=== PATIENT | female | born 1935 | race Caucasian/White ===

== ENCOUNTER 2017-01-04 19:33 | Inpatient (IN) ==
[2017-01-04] MEDS ORDERED: ASPIRIN PO ONE (19:56)
--- NOTE | 2017-01-04 19:58 | Diag Imaging Result Doc PS360 ---
HEAD W/O CONTRAST - 01/04/2017 INDICATION: stroke protocol TECHNIQUE: A CT dose reduction protocol was used. COMPARISON: None FINDINGS: There is moderate periventricular white matter chronic microvascular disease. There are old areas of encephalomalacia at the right frontal and temporal-occipital lobes. No intracranial mass or hemorrhage. The skull is intact. The sinuses, mastoids, and middle ears are clear. IMPRESSION: Remote ischemic changes of the brain. No acute abnormality. Electronically signed by Nitin Chacko 01/04/2017 7:56 PM
--- NOTE | 2017-01-04 20:22 | Diag Imaging Result Doc PS360 ---
CHEST-PORTABLE - 01/04/2017 INDICATION: stroke protocol TECHNIQUE: COMPARISON: None FINDINGS: The lungs are normally expanded and clear. Heart size and mediastinal contours are normal. No pneumothorax or pleural effusion. IMPRESSION: Negative exam. Electronically signed by Nitin Chacko 01/04/2017 8:20 PM
[2017-01-04 20:33] LABS: MANUAL DIFF NEEDED? NO
[2017-01-04 20:42] LABS: BASO% 1.1 % (0.0-0.8); EOS# 0.42 X1000 (0.0-0.7); EOS% 5.8 % (0.0-10.0); HEMATOCRIT 41.4 % (37.0-47.0); HEMOGLOBIN 13.7 g/dL (12.0-16.0); IMM GRAN# 0.06 X1000 (0.0-0.04); IMM GRAN% 0.8 % (0.0-0.5); LYMPH% 24.7 % (20.5-51.1); MCH 31.4 PG (27-31); MCHC 33.1 g/dL (33-37); MCV 94.7 FL (81-99); MONO# 0.56 X1000 (0.11-0.59); MONO% 7.7 % (1.7-9.3); MPV 10.7 FL (7.4-10.4); NEUT% 59.9 % (42.2-75.2); PLT 247 X1000 (130-400); RBC 4.37 XMIL (4.2-5.4)
[2017-01-04 20:50] LABS: INR 1.36; PROTIME 14.6 Seconds (9.2-11.7); PTT 27.1 Seconds (22.0-36.0)
[2017-01-04 21:06] LABS: URINE MICRO REVIEW NEEDED? NO; URINE SOURCE CATH
[2017-01-04 21:08] LABS: CALCIUM 9.7 mg/dL (8.8-10.2); POTASSIUM 3.1 mmol/L (3.5-5.1); TOTAL BILIRUBIN 0.35 mg/dL (0.20-1.00); TOTAL PROTEIN 7.6 g/dL (6.3-8.3)
[2017-01-04 21:11] LABS: BILIRUBIN URINE NEGATIVE (NEGATIVE); BLOOD URINE NEGATIVE (NEGATIVE); COLOR YELLOW; GLUCOSE URINE NEGATIVE (NEGATIVE); LEUKOCYTES URINE SMALL (NEGATIVE); NITRITE URINE POSITIVE (NEGATIVE); PROTEIN URINE NEGATIVE (NEGATIVE); SP GRAVITY URINE 1.013; TURBIDITY URINE CLEAR (CLEAR); UR EPITHELIAL CELLS <10 /HPF (<10); URINE BACTERIA 4+ /HPF; URINE CULTURE NEEDED? YES; URINE RBC <10 /HPF (<10); UROBILINOGEN URINE NORMAL (NORMAL)
[2017-01-04 21:19] LABS: UR AMPHETAMINES QUAL NONE DETECTED (NONE DETECT); UR BARBITUATES QUAL NONE DETECTED (NONE DETECT); UR BENZODIAZEPIN QUAL NONE DETECTED (NONE DETECT); UR CANNABINOIDS QUAL NONE DETECTED (NONE DETECT); UR COCAINE QUAL NONE DETECTED (NONE DETECT); UR METHADONE QUAL NONE DETECTED (NONE DETECT); UR OPIATES QUAL NONE DETECTED (NONE DETECT); UR OXYCODONE QUAL NONE DETECTED (NONE DETECT); UR PCP QUAL NONE DETECTED (NONE DETECT)
[2017-01-04] MEDS ORDERED: DUONEB (A & A) INH ONE (22:16)
--- NOTE | 2017-01-04 23:12 | HISTORY AND PHYSICAL ---
PRIMARY CARE PROVIDER: Nacho Leos. MACHINING ASSOCIATE: Michael Delgadillo. ORACLE DISTRIBUTION CONSULTANT: Dr. Peace. UROLOGIST: Dr. Booth. CHIEF COMPLAINT: Cannot move left arm. HPI: Ms. Jolley is an 81-year-old female who presented to the emergency room today with new onset left-sided hemiparesis affecting her upper arm and face. She is a resident at the [facility] in the assisted living portion. She had played a card game with her friends and walked back to her apartment. She ambulates with a cane. On arriving home she went to the bathroom, went to flush the toilet using her left arm and could not move it. She then lied down on the bed for few minutes thinking that it would pass, after realizing that it would not she triggered her med alert that contacts the RN at the [facility] who subsequently called an ambulance. On arrival to the emergency room a head CT was performed which did show moderate periventricular white matter chronic microvascular disease. There were noted hypodensities but appeared to be older ischemic changes as opposed to an acute ischemic change. She will be admitted to CICU for further evaluation and treatment. PAST MEDICAL HISTORY: 1. Bladder cancer. 2. Hypertension. 3. Hyperlipidemia. 4. 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 SURGICAL HISTORY: 1. Thyroidectomy. 2. Questionable appendectomy. The patient has stated that she had not had her appendix removed however previous documentation did say she had an appendectomy. 3. Tonsillectomy. 4. Left hip replacement. 5. Colon resection. 6. Bladder cancer with subsequent surgery. SOCIAL HISTORY: Lives at the [facility]. Denies tobacco, alcohol or illicit drug use or abuse. FAMILY HISTORY: Mother had colon cancer, father hypertension, paternal grandmother had diabetes mellitus, sister who was at the bedside has atrial fibrillation with a pacemaker and coronary artery disease. ALLERGIES: No known drug allergies. HOME MEDICATIONS: 1. Vitamin A 800 units p.o. at bedtime. 2. CoQ10 200 mg p.o. daily. 3. Losartan/hydrochlorothiazide 100/25 one p.o. daily. 4. Pravastatin 40 mg p.o. at bedtime. 5. Metoprolol 100 mg p.o. at bedtime. 6. Glucosamine chondroitin 2 capsules p.o. b.i.d. 7. Calcium 600 with vitamin D 1 capsule daily. 8. Aspirin 81 mg p.o. daily. 9. Levothyroxine 88 mcg p.o. daily. REVIEW OF SYSTEMS: Fourteen point review of systems conducted with the patient. She denied chest pain, headache, dizziness, nausea, vomiting, blurring of vision or any acute visual changes. Also denied shortness of breath, diarrhea, hematochezia, hematemesis, hemoptysis, melena or dysuria. Pertinent positives listed above in the HPI. All other systems reviewed and found to be negative. PHYSICAL EXAMINATION: VITAL SIGNS: Temperature 98.6 degrees, pulse 73, respirations 15, blood pressure 131/74, oxygen saturation 95% on room air. GENERAL: Pleasant 81-year-old female noted to have a noticeable left-sided facial droop during interview and slurring of speech. Does answer all questions appropriately, is alert and oriented x3. No acute distress. HEENT: Head is atraumatic, normocephalic. Pupils are equal, round, reactive to light. Extraocular eye movement intact. Sclerae anicteric. Conjunctivae is pink. Left-sided facial droop with tongue deviation to the left side noted. Oral mucosa is moist. Otherwise normal oropharyngeal examination. NECK: Supple. No JVD. Thyroid, old surgical scar from thyroidectomy noted. Trachea is midline. No carotid bruit on auscultation. CARDIAC: S1-S2 appreciated. Regular rhythm, sinus arrhythmia per EKG rate in the 70s. No murmurs, gallops, rubs. LUNGS: Some expiatory wheezing noted greater on the right side. No rhonchi, no rales. Symmetrical rise and fall with respirations. ABDOMEN: Protuberant, soft, nondistended, nontender. Bowel sounds present in all 4 quadrants. Normoactive. No pulsatile mass. No organomegaly. EXTREMITIES: There is 1 to 2+ pitting edema bilateral lower extremities midthigh to ankle, 2+ pedal pulses bilaterally. GENITOURINARY: Patient voids, Parsons catheter to be placed, otherwise deferred. NEUROLOGICAL: Alert and oriented x3. Left arm is flaccid on examination and cannot be held against gravity. Facial asymmetry was noted with a left-sided facial droop and tongue deviation to the left side. Patient does follow all commands aside from this. Cranial nerves were evaluated and were otherwise grossly intact. MUSCULOSKELETAL: Left upper extremity flaccid, negative hand linoleum installer. Could not be held against gravity. Right upper extremity 5/5 strength, bilateral lower extremity with symmetrical strength. SKIN: Warm, dry and intact. No acute lesions or rash. DIAGNOSTIC DATA: CT of the head showed remote ischemic changes of the brain. No acute abnormality. Chest x-ray, borderline cardiomegaly but otherwise NAD. LABORATORY DATA: CBC within normal limits. PT 14.6, INR 1.36. Sodium 142, potassium 3.1, chloride 99, carbon dioxide 27, BUN 30, creatinine 1.1, glucose 128. Urine nitrite positive, leukocyte esterase positive, 10-20 WBCs, 4+ bacteria. Toxicology screen is negative. ASSESSMENT AND PLAN: 1. Cerebrovascular accident most likely affecting the middle cerebral artery. CT scan was positive for old hypodensities however no acute abnormality was seen. Will order noncontrasted MRI in a.m. Patient was previously on 81 mg aspirin. Will discontinue and change to Plavix 75 mg p.o. daily as the patient continues to have neurological changes on aspirin. Lipid profile has been ordered. Recommend possible change from pravastatin 40 mg to high-dose Lipitor however will defer this to Dr. Leos, her primary care provider. We will order a carotid ultrasound in a.m. Patient had echocardiogram last month. She has not in new onset atrial fibrillation. We will not order echocardiogram at this time. 2. Hypertension. Patient is normotensive at this time. Will not give acute treatment for hypertension for hyperperfusion related to cerebrovascular accident. Will continue her losartan and defer to Dr. Leos, possible decrease or stoppage in the morning if needed. Will continue Toprol 100 mg p.o. at bedtime as well. 3. Hypothyroidism. Check TSH level. Continue Synthroid. 4. Hypokalemia. Will give 20 mEq of potassium. 5. Chronic renal insufficiency. The patient is on a thiazide diuretic and is noted to have lower extremity edema. Will not give fluid resuscitation at this time as it is unknown what the patient's baseline creatinine is. Will defer this to Dr. Leos who will see patient in a.m. Further recommendations per patient clinical course. Dictated by LORENA Galicia for Brandt Nagel MD Seen,examined and discussed with EMAIL PRODUCER. cc: LORENA Galicia MD Nacho T. Leos, MD [facility]
[2017-01-04] MEDS ORDERED: LOVENOX SUBQ SCH (23:36)
[2017-01-04] MEDS ORDERED: ZOFRAN IV PRN (23:36)
[2017-01-05] MEDS: POTASSIUM CHLORIDE 20 MEQ/SWI 20 MEQ/100 ML IVPB IV SCH ×2 (00:32→02:51)
[2017-01-05] MEDS: ROCEPHIN 1 GM/NS 1 GM/50 ML IVPB IV SCH ×2 (00:32→23:29)
[2017-01-05 05:44] LABS: MANUAL DIFF NEEDED? NO
[2017-01-05 05:51] LABS: BASO% 0.9 % (0.0-0.8); EOS# 0.38 X1000 (0.0-0.7); EOS% 5.7 % (0.0-10.0); LYMPH# 1.48 X1000 (1.2-3.4); LYMPH% 22.2 % (20.5-51.1); MCH 31.6 PG (27-31); MCHC 33.3 g/dL (33-37); MCV 94.9 FL (81-99); MONO# 0.78 X1000 (0.11-0.59); MONO% 11.7 % (1.7-9.3); MPV 10.4 FL (7.4-10.4); NEUT% 59.5 % (42.2-75.2); PLT 202 X1000 (130-400); RBC 4.11 XMIL (4.2-5.4)
[2017-01-05] MEDS ORDERED: SYNTHROID PO SCH (07:00)
[2017-01-05 07:15] LABS: AGAP 15; BUN 26 mg/dL (8-22); CHLORIDE 106 mmol/L (98-107); COSMO 297; HDL 40 mg/dL (45-65); LDL 99 mg/dL; MAGNESIUM 1.7 mg/dL (1.5-2.7); POTASSIUM 3.9 mmol/L (3.5-5.1); SODIUM 147 mmol/L (136-145); TCO2 26 mmol/L (25-35); TRIGLYCERIDES 157 mg/dL (35-135); VLDL 31 mg/dL
[2017-01-05] MEDS: HYZAAR 50/12.5 MG PO SCH (08:39)
[2017-01-05] MEDS: COENZYME Q10 PO SCH (08:39)
[2017-01-05] MEDS: CALTRATE 600 + D PO SCH (08:39)
[2017-01-05] MEDS: GLUCOSAMINE 500 MG/CHONDROITIN 400 MG PO SCH ×3 (08:39→21:06)
[2017-01-05] MEDS ORDERED: PLAVIX PO SCH (09:00)
--- NOTE | 2017-01-05 12:07 | CONSULTATION ---
DATE OF CONSULTATION: 01/05/2017 REQUESTING PHYSICIAN: Dr. Leos and the Hospitalist Service REASON FOR CONSULTATION: Stroke. HISTORY OF PRESENT ILLNESS: Ms. Jolley is an 81-year-old female who stays at [facility] living. The patient was playing cards yesterday in the afternoon when all of a sudden she noted after going to the bathroom that her left arm was not moving. The patient waited for a little while and realized that this was not getting better and then decided to ask for help. She was brought to the emergency room department. They checked her immediately. Her initial vital signs showed that her blood pressure was 125/71 and subsequently 133/107. They acknowledged that the left arm and face were paralyzed. They got a CT of the head which shows remote ischemic changes of the brain, no acute abnormality. A 12-lead EKG shows sinus rhythm with PACs and a right bundle branch block. No acute ischemic changes. First troponin is negative. Chest x-ray was also done and is negative. They also did lab work that shows normal hemoglobin and white count, normal platelet count. Sodium was normal. Potassium was low. Creatinine was slightly elevated. Her cholesterol was 170, triglycerides 157, LDL was 99, HDL of 40. The patient was subsequently admitted to the hospital for management of his acute weakness of the left arm and left side of the face. The patient denies having any chest pain or any pain in the preceding days. She says that in the few months preceding this event, she had 2 episodes of unexplained falls. She had not noticed any swelling or claudication. No palpitations. No dizziness. PAST MEDICAL HISTORY: Positive for hypertension for a number of years. She also has a history of hyperlipidemia. She has a history of moderate degree of mitral regurgitation, recent echocardiogram done by Dr. Peace about a month ago on 12/05/2016 showed moderate degree of mitral regurgitation with preserved ejection fraction. Her history is also positive for enlarged thyroid and bladder cancer. PAST SURGICAL HISTORY: She has had transurethral resection of bladder cancer, and she is being followed by Oncology and Dr. Booth. She has had thyroidectomy. She had cataract surgery. She had left hip surgery. She has had resection of 3/4 of her colon at the age of 25 or so for familial polyposis. She has not had any recurrent issues with that. SOCIAL HISTORY: She used to work for the [employer] for a total of 35 years. She retired about 15 or 20 years ago. The patient had 2 children, and unfortunately both are . One of lung cancer, and the daughter of complications of diabetes. She is . She has one sister that lives nearby. She is not a smoker, not a drinker. FAMILY HISTORY: Really noncontributory. REVIEW OF SYSTEMS: Her general physical stamina is somewhat decreased due to arthritis. She does not do a whole lot of physical activity. She is morbidly obese with a body mass index of 43.9. Her other points on the review of systems, cardiovascular, neurologic, psychiatric, skin, hearing, visual, abdominal, pulmonary, metabolic, musculoskeletal, etc. is noncontributory beyond what I have reported above. PHYSICAL EXAMINATION: Blood pressure is 150/93, temperature 98.6, pulse 65, respirations 19. She is awake, alert and oriented, in no distress. HEENT is normal. She has left facial drooping. No cervical bruits. No jugular venous distention. Chest shows diminished breath sounds at the bases. Heart sounds are regular and rhythmic. There is a questionable systolic murmur over the left sternal border. This is very muffled. Abdomen is obese. Bowel sounds diminished. No palpable liver. Extremities showed very good pulses. There is subtle weakness of the left leg. Neurologic: She has obvious left facial paralysis as well as left upper extremity paralysis. The left leg is slightly impaired. IMPRESSION: 1. The patient has suffered an acute right hemispheric stroke with left arm and face paralysis. 2. History of hypertension. 3. History of hyperlipidemia. 4. Moderate degree of mitral regurgitation. 5. Abnormal EKG with a right bundle branch block. RECOMMENDATIONS: At this point in time, they have requested carotid ultrasound, MRI of the brain. I would suggest to obtain a consultation with Neurology. We will be reviewing additional tests including followup troponin, D-dimer and ProBNP levels, and we will furnish additional advice. Upon discharge, she will be followed by Dr. Brown who is her regular experimental technician. cc: MD Nacho Katz MD
[2017-01-05] MEDS: LOVENOX SUBQ SCH ×2 (13:26→23:29)
--- NOTE | 2017-01-05 13:50 | PROGRESS NOTE ---
DATE: 01/05/2017 SUBJECTIVE: Mrs. Jolley was admitted to [facility] with an apparent embolic CVA. She has left-sided facial weakness and paresis of the left upper extremity. She remains in normal sinus rhythm. Her initial CT scan of the brain demonstrated moderate periventricular white matter changes with old areas of encephalomalacia at the right frontal and temporal occipital lobes. Blood pressure is generally well controlled. She denies any chest pain, palpitations, or anginal equivalents. OBJECTIVE: Vital signs: Blood pressure 150/93, pulse 65, respirations 19, temperature 98.6 degrees. Neck: No carotid bruits. CV: Regular rate and rhythm. Lungs: Clear. Abdomen: Soft, nontender, with active bowel sounds. Neuro: She is alert and easily arousable. Speech is garbled and slurred. She has left facial droop. She is unable to move the left arm at all. She has normal strength in the right upper extremity and the lower extremities bilaterally. DTRs are 2+ and symmetric. LABORATORY DATA: Various laboratory studies were obtained. A lipid profile demonstrated total cholesterol of 170, triglycerides 157, LDL 99 and an HDL of 40. Her TSH was 5.79. A BMP demonstrated the following. Sodium 147, potassium 3.9, BUN 26, creatinine 1.0, and glucose 95. ASSESSMENT AND PLAN: 1. Left upper extremity hemiparesis. It appears that she has had an embolic cerebrovascular accident. The classic findings of a right middle cerebral artery stroke would be ipsilateral facial weakness with contralateral limb weakness. We will continue to monitor for arrhythmias via telemetry. We will check a carotid ultrasound in the morning as well as an MRI of the brain. She has had a recent echocardiogram that was grossly normal. I am going to stop the Plavix and Lovenox 40 mg subcutaneously daily and begin Lovenox 1 mg/kg subcutaneously b.i.d. If the MRI is unremarkable I believe that one would potentially have to consider the possibility of Krishna paralysis. 2. Mixed hyperlipidemia. In the setting of a stroke, I would like to see the LDL less than 70. I will increase the pravastatin to 80 mg at bedtime. I will recheck liver function tests in 6 weeks and liver function tests and lipid profile in 12 weeks. 3. Hypertension. Her blood pressure is stable. We will continue her current regimen of medications. 4. Hypothyroidism. Her TSH was 5.79. I am going to increase the levothyroxine to 100 mcg daily and she will need followup thyroid studies as an outpatient. She is followed by Dr. Leos. cc: MD Nacho So MD
--- NOTE | 2017-01-05 18:56 | Carotid Study ---
DATE: 01/05/2017 PROCEDURE: Carotid duplex imaging. REFERRING PHYSICIAN: Yasmin in the [facility]. INTERPRETING PHYSICIAN: Rudy Hoskins MD TECH: Edwige. INDICATIONS: CVA with left hemiparesis. OBSERVED DATA RIGHT LEFT Brachial Blood Pressure Carotid Pulse Bruits: Carotid/Sub DIAGRAM OF ULTRASOUND IMAGING R L RIGHT INT EXT INT EXT LEFT Ced (cm/s) Ced (cm/s) Subclavian 119/13 Subclavian 81/10 CCA Proximal 59/12 CCA Proximal 56/9 CCA Distal 51/12 CCA Distal 69/14 Bulb 38/12 Bulb 46/9 ICA Proximal 53/12 ICA Proximal 53/16 ICA Mid 52/14 ICA Mid 60/14 ICA Distal 68/18 ICA Distal 59/17 ECA 104/16 ECA 66/15 Vertebral 36/ antegrade Vertebral 53/9 antegrade ICA/CCA Ratio 1.16 ICA/CCA Ratio 0.88 % Stenosis 0-39% % Stenosis 0-39% PHYSICIAN INTERPRETATION: There is focal-appearing plaque in the right carotid bulb. This does not cause significant flow disturbance or elevation of velocity. Similarly on the left there is more broad-based plaque focally in the bulb. That, again, does not cause turbulence or elevation of velocities. Of note, there is a mild discrepancy in the systolic velocities not in the right and left subclavian vessels with the right being slightly higher than the left, and the tech noted a plaque here, although it is not clearly seen on the images available. SUMMARY: Estimated 0-39% stenosis bilaterally with mild atherosclerotic changes in the bulb bilaterally. Regarding subclavian velocity discrepancy, would recommend correlation with angiography with clinically indicated. cc: MD Terry Barrios CRNP Russell T. Barr, MD [facility] CENTER[facility] Manuel
[2017-01-05] MEDS ORDERED: PRAVACHOL PO SCH (21:00)
[2017-01-05] MEDS: TOPROL XL PO SCH (21:00)
[2017-01-05] MEDS: PRAVACHOL PO SCH (21:00)
[2017-01-05] MEDS: PATIENT'S OWN MED PO SCH (21:05)
--- NOTE | 2017-01-06 05:31 | EKG Report ---
Test Performed on : 01/05/2017 06:30:47 AM Test Reason : eval rhythm Blood Pressure : / mmHG Vent. Rate : 068 BPM Atrial Rate : 068 BPM P-R Int : 174 ms QRS Dur : 120 ms QT Int : 464 ms P-R-T Axes : 074 -15 016 degrees QTc Int : 493 ms Sinus rhythm. with premature supraventricular complexes. Right bundle branch block Abnormal ECG When compared with ECG of 04-JAN-2017 20:00, (Unconfirmed) premature supraventricular complexes. are now present Confirmed by Armando CARDENAS, Ted Shanks ([id number]) on 01/07/2017 2:15:14 PM
[2017-01-06] MEDS: SYNTHROID PO SCH (06:19)
[2017-01-06] MEDS: COENZYME Q10 PO SCH (08:50)
[2017-01-06] MEDS: HYZAAR 50/12.5 MG PO SCH (08:50)
[2017-01-06] MEDS: GLUCOSAMINE 500 MG/CHONDROITIN 400 MG PO SCH ×2 (08:50→21:55)
[2017-01-06] MEDS: CALTRATE 600 + D PO SCH (08:50)
[2017-01-06] MEDS: ASPIRIN PO SCH (08:53)
[2017-01-06] MEDS: MACROBID PO SCH ×2 (11:40→21:55)
[2017-01-06] MEDS: LOVENOX SUBQ SCH ×2 (11:40→21:56)
[2017-01-06] MEDS: TOPROL XL PO SCH (21:55)
[2017-01-06] MEDS: PRAVACHOL PO SCH (21:55)
[2017-01-07] MEDS: LOVENOX SUBQ SCH ×3 (00:15→21:27)
[2017-01-07] MEDS: PATIENT'S OWN MED PO SCH ×2 (00:15→21:21)
[2017-01-07] MEDS: SYNTHROID PO SCH (06:18)
--- NOTE | 2017-01-07 07:48 | PROGRESS NOTE ---
DATE: 01/07/2017 CHIEF COMPLAINT: Weakness of left upper extremity. SUBJECTIVE: Ms. Jolley feels a little stronger in the left arm. Now she can raise the arm against gravity. The left side of her face is still paralyzed. She is in good spirits. She is not having any pain. OBJECTIVE: Vital signs: Blood pressure is 127/69, temperature 98.2, pulse 81, respirations 20. General: She is awake, alert and oriented. She has obvious paresis of the left side of her face, drooping. HEENT: Otherwise unremarkable. Chest: Fairly clear to auscultation and percussion. Cardiac: Heart sounds are regular and rhythmic. Occasional extrasystole. Abdomen: Nontender. No masses. No hepatomegaly. Extremities: Showed no edema. She has definite weakness in the left arm. Left face is also weak. Follows commands. LABORATORY DATA: Sodium on the was 147, potassium 3.9, BUN 26, creatinine 1.0. ProBNP was 947. Her troponin was checked twice, they were negative. EKG shows right bundle branch block with sinus rhythm. Cholesterol total 170, triglycerides 157, LDL 99, HDL 40. IMPRESSION: 1. Patient who has suffered a right cerebrovascular accident with stroke with left hemiparesis involving the face and arm. The etiology may well be embolic. I have reviewed the transthoracic echocardiogram done a month ago that shows moderate mitral regurgitation but, more importantly, it shows significant enlargement of the left atrium which may be an indication that she probably has paroxysmal atrial fibrillation at times. That raises the likelihood of embolic stroke tremendously. 2. History of hypertension. 3. History of hyperlipidemia. 4. Abnormal electrocardiogram. RECOMMENDATIONS: I would suggest to pursue transesophageal echocardiogram. I discussed with her indications, risk and complications. She is in agreement. We will set her up for January 09 in the morning. At this time, she is being treated for a urinary tract infection which is growing E. coli resistant to ampicillin and also to Levaquin as well as Bactrim. She is taking nitrofurantoin at his time. I would probably let her stay on the nitrofurantoin a couple of days before doing the BORA. Further intervention will depend on the findings. She may require long- term anticoagulation with Eliquis or one of the standard oral anticoagulant drugs including warfarin. We will check her electrolytes tomorrow morning. Further advice will be forthcoming. cc: MD Nacho Katz MD
[2017-01-07] MEDS: CALTRATE 600 + D PO SCH (10:27)
[2017-01-07] MEDS: ASPIRIN PO SCH (10:27)
[2017-01-07] MEDS: GLUCOSAMINE 500 MG/CHONDROITIN 400 MG PO SCH ×2 (10:27→21:21)
[2017-01-07] MEDS: COENZYME Q10 PO SCH (10:27)
[2017-01-07] MEDS: MACROBID PO SCH ×2 (10:27→21:21)
[2017-01-07] MEDS: HYZAAR 50/12.5 MG PO SCH (10:28)
--- NOTE | 2017-01-07 16:50 | Diag Imaging Result Doc PS360 ---
EXAM: FOREARM-LEFT HISTORY: left forearm swelling TECHNIQUE: Two views COMMENT: There is marked soft tissue swelling on the dorsal aspect of the distal forearm. Some skin thickening is present. There is no evidence of fracture or dislocation. No periosteal reaction or lysis is demonstrated. IMPRESSION: No acute bony disease. Soft tissue swelling as described. Electronically signed by Mohsen Cardenas 01/07/2017 4:48 PM
--- NOTE | 2017-01-07 16:51 | Diag Imaging Result Doc PS360 ---
EXAM: HAND COMPLETE LEFT HISTORY: SWELLING TECHNIQUE: Left hand three views COMMENT: there are severe degenerative changes in the first metacarpocarpal joint. There is no evidence of acute fracture or dislocation. Soft tissue swelling is again noted around the wrist but particularly over the dorsum of the distal forearm. IMPRESSION: Osteoarthritis. Soft tissue swelling. Electronically signed by Mohsen Cardenas 01/07/2017 4:49 PM
--- NOTE | 2017-01-07 16:52 | Diag Imaging Result Doc PS360 ---
EXAM: WRIST COMPLETE LEFT HISTORY: SWELLING TECHNIQUE: Three views COMMENT: There are severe degenerative changes in the first metacarpocarpal joint with osteophytes and sclerosis of the trapezium. There are also subchondral cysts present in the scaphoid laterally and the lunate. No evidence of acute fracture or dislocation is present. IMPRESSION: Osteoarthritis. Electronically signed by Mohsen Cardenas 01/07/2017 4:50 PM
[2017-01-07] MEDS: TOPROL XL PO SCH (21:21)
[2017-01-07] MEDS: PRAVACHOL PO SCH (21:21)
[2017-01-08] MEDS: SYNTHROID PO SCH (06:18)
[2017-01-08] MEDS: CALTRATE 600 + D PO SCH (09:01)
[2017-01-08] MEDS: MACROBID PO SCH (09:02)
[2017-01-08] MEDS: ASPIRIN PO SCH (09:02)
[2017-01-08] MEDS: HYZAAR 50/12.5 MG PO SCH (09:02)
[2017-01-08] MEDS: COENZYME Q10 PO SCH (09:02)
[2017-01-08] MEDS: GLUCOSAMINE 500 MG/CHONDROITIN 400 MG PO SCH ×2 (09:03→21:53)
[2017-01-08] MEDS: PRAVACHOL PO SCH (21:53)
[2017-01-08] MEDS: TOPROL XL PO SCH (21:53)
[2017-01-08] MEDS: PATIENT'S OWN MED PO SCH (21:53)
[2017-01-09] MEDS: SYNTHROID PO SCH (06:16)
[2017-01-09] MEDS ORDERED: XYLOCAINE 2% VISCOUS ONE (07:54)
[2017-01-09] MEDS ORDERED: VERSED ONE (07:54)
[2017-01-09] MEDS ORDERED: DEMEROL ONE (07:55)
[2017-01-09] MEDS ORDERED: ANESTHESIA PB SET 88 IN 5742 ONE (07:55)
[2017-01-09] MEDS ORDERED: CLAVE TWINSITE 32 IN 11959 ONE (07:55)
[2017-01-09] MEDS ORDERED: NS 1,000 ML ONE (07:55)
[2017-01-09] MEDS ORDERED: XYLOCAINE 4% TOPICAL SOLUTION ONE (07:56)
[2017-01-09] MEDS: ASPIRIN PO SCH (10:37)
[2017-01-09] MEDS: GLUCOSAMINE 500 MG/CHONDROITIN 400 MG PO SCH ×3 (10:37→22:20)
[2017-01-09] MEDS: HYZAAR 50/12.5 MG PO SCH (10:37)
[2017-01-09] MEDS: CALTRATE 600 + D PO SCH (10:38)
[2017-01-09] MEDS: COENZYME Q10 PO SCH (10:38)
--- NOTE | 2017-01-09 10:50 | Transesophageal Echocardiogram ---
DATE: 01/09/2017 PROCEDURE: Transesophageal echocardiogram. REASON FOR THE STUDY: Patient with a stroke, presumably embolic. The patient was consented on 01/07/2017. DESCRIPTION: The patient was brought to the cardiac computer lab para professional in a fasting state. The patient was with a normal mental status before performing the study. Her throat was anesthetized with viscus lidocaine and HurriCaine. She received 2 mg of Versed and 25 mg of Demerol given in divided doses. The esophagus was intubated without difficulty. Multiple views of the cardiac structures were obtained. SUMMARY OF MAIN FINDINGS: 1. The left atrium appears to be generous in size as well as the left atrial appendage. Flow velocities are on the order of 30 cm/s to 40 cm/s. There is evidence of a mild degree of spontaneous echo contrast. 2. The interatrial septum is intact. There is no shunt across the septum.Agitated saline injected (negative for shunt). 3. The eustachian valve is prominent. 4. The right atrium is small. 5. The tricuspid valve looks normal. Color flow mapping is unremarkable. 6. The pulmonic valve looks normal. 7. The right ventricle is normal. 8. The left ventricle is normal in size and function.EF probably in the 65% or greater range. 9. The aortic valve has 3 cusps and they open normally. Color flow mapping is unremarkable. 10.The mitral valve shows a [id number] degree of regurgitation but there is no vegetation. 11.The pulse wave Doppler of pulmonary venous flow on the right and left is normal. 12.The descending thoracic aorta is not dilated. It shows some scattered plaque , very mild. 13.There is no pericardial effusion. SUMMARY: In summary, this study shows no evidence of intracardiac thrombus, however, the left atrium and its appendix are prominent. There is spontaneous echo contrast. Conceivably the patient may have suffered an embolic stroke if she had episodes of paroxysmal atrial fibrillation. RECOMMENDATIONS: Consider either long-term anticoagulation or if in doubt probably a loop recorder monitor looking for evidence of paroxysmal atrial fibrillation. The patient tolerated this procedure well without complication. cc: MD Nacho Katz MD [facility]OSPITALJose Manuel
[2017-01-09] MEDS ORDERED: LIPITOR PO SCH (21:00)
[2017-01-09] MEDS: TOPROL XL PO SCH (22:20)
[2017-01-09] MEDS: PATIENT'S OWN MED PO SCH (22:21)
[2017-01-10] MEDS: SYNTHROID PO SCH (06:14)
[2017-01-10 08:30] VITALS: BP 134/82
[2017-01-10] MEDS: COENZYME Q10 PO SCH (08:49)
[2017-01-10] MEDS: GLUCOSAMINE 500 MG/CHONDROITIN 400 MG PO SCH (08:50)
[2017-01-10] MEDS: CALTRATE 600 + D PO SCH (08:50)
[2017-01-10] MEDS: ASPIRIN PO SCH (08:50)
[2017-01-10] MEDS: HYZAAR 50/12.5 MG PO SCH (08:51)
--- NOTE | 2017-01-10 09:47 | DISCHARGE SUMMARY ---
ADMISSION DATE: 01/04/2017 DISCHARGE DATE: 01/10/2017 FINAL DIAGNOSES: 1. 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 2. Suspected transient atrial fibrillation. 3. Essential hypertension. 4. Hyperlipidemia. 5. Hypothyroidism. 6. History of bladder cancer. PRESENT ILLNESS: Ms. Jolley is an 81-year-old woman resident of the [facility]. She was playing a card game with friends and had to leave momentarily to use the bathroom. When she attempted to use her left arm to flush the toilet, she noticed that she could not move her left arm. After waiting a few minutes and realizing that it would not resolve spontaneously, she contacted the nurse at the [facility], who called an ambulance. In the emergency room she was evaluated, found to have a significant left facial droop, left arm weakness and very mild left leg weakness. CT of the brain showed chronic microvascular disease and at least 2 small old areas of encephalomalacia. PHYSICAL EXAMINATION: Vital Signs: Blood pressure 131/74, pulse of 73. General: She is pleasant and alert, but had a noticeable left-sided facial droop and some dysarthria. The tongue deviated to the left. Neck: Supple with no bruits. She had an old surgical scar from thyroidectomy. Lungs: Clear. Abdomen: Soft and nontender. Extremities: She had slight collateral pitting edema of the ankles. Neurologic exam: She was alert and oriented. Her left arm was flaccid and she was unable to raise it against gravity. She does follow commands and responds appropriately to questions. Cranial nerves are otherwise unremarkable. DATABASE: CBC was normal. Sodium 142, potassium 3.1, BUN 30, creatinine 1.1. Urinalysis showed 10-20 WBCs, 4+ bacteria, nitrite positive. HOSPITAL COURSE: She was admitted to CICU with a diagnosis of an acute ischemic infarct of the right cerebral hemisphere due to her expressive, but not receptive aphasia. This was felt to be in the right motor strip. Carotid Doppler exam: Leonidas she had some focal plaque in each carotid bulb, but no obstructing lesions. Dr. Watson, tool shaper set up operator, consulted and said he suspected that this stroke could have been embolic with paroxysmal atrial fibrillation. Transthoracic echocardiogram had been done recently and showed only mild left atrial enlargement and normal left ventricular function. He recommended a transesophageal echocardiogram, which was done on 01/09. She had a generous size left atrium and left atrial appendage with spontaneous echo contrast noted, although she was in sinus rhythm. The interatrial septum was intact. Mild to moderate mitral regurgitation was noted. Aortic valve appeared normal as did the pulmonic valve in the right-sided structures. He recommended strongly consideration of anticoagulation and an outpatient event monitor after she completes rehabilitation. She was seen by physical therapy occupational therapy and speech therapy. Her swallowing was felt to be safe with a mechanical soft diet and thin liquids. While here, her left shoulder and left elbow strength improved, but her wrist and hand remained essentially flaccid on the left side. She was able to ambulate well with a omero walker and seemed to have no significant leg weakness. Occupational therapy did not have equipment here to make a protective wrist splint for her left wrist, so an off-the- shelf one was obtained, but seems to fit rather poorly. She was noted to have some bruising and swelling of the distal left forearm, and x-rays of the wrist and forearm were negative for fracture. On admission her urinalysis was abnormal with white blood cells and positive nitrites. Culture subsequently grew enterococci and she was treated with Macrobid. She is discharged to [facility] for subacute rehabilitation, and I will continue to follow her there. DISCHARGE MEDICATIONS: 1. Metoprolol ER 50 mg at bedtime. 2. Eliquis 5 mg q. 12 hours. 3. Atorvastatin 40 mg at bedtime. 4. Coenzyme Q-10 200 mg daily. 5. Calcium carbonate with vitamin D one daily. 6. Aspirin 81 mg daily. 7. Levothyroxine 88 mcg daily. cc: Nacho Leos MD
== END 2017-01-10 11:31 ==
LOC: ED 19:33 → 3S 22:50 → SUATTDRO 22:50 → 3N 01-06 10:44
PROVIDERS: ADMIT Internal Medicine; ATTEND Internal Medicine

== ENCOUNTER 2017-03-03 13:32 | Inpatient (IN) ==
--- NOTE | 2017-03-03 14:04 | Diag Imaging Result Doc PS360 ---
EXAM: CHEST-PORTABLE HISTORY: sob/cp TECHNIQUE: Portable upright AP COMPARISON: 01/04/2017 FINDINGS: The lungs are well expanded. The heart is not enlarged. The vessels are not distended. No pneumonia. No pleural effusions identified. There are long-standing arthritic changes to the shoulders. IMPRESSION: Negative chest. Electronically signed by Tha Ocampo 03/03/2017 2:02 PM
[2017-03-03 14:28] LABS: MANUAL DIFF NEEDED? NO
[2017-03-03 14:34] LABS: BASO% 0.4 % (0.0-0.8); EOS# 0.13 X1000 (0.0-0.7); EOS% 1.3 % (0.0-10.0); HEMATOCRIT 45.4 % (37.0-47.0); HEMOGLOBIN 15.1 g/dL (12.0-16.0); LYMPH% 12.1 % (20.5-51.1); MCH 31.2 PG (27-31); MCHC 33.3 g/dL (33-37); MCV 93.8 FL (81-99); MONO# 1.02 X1000 (0.11-0.59); MONO% 10.3 % (1.7-9.3); MPV 11.4 FL (7.4-10.4); NEUT% 75.9 % (42.2-75.2); PLT 233 X1000 (130-400); RBC 4.84 XMIL (4.2-5.4)
[2017-03-03 14:48] LABS: INR 1.5; PROTIME 16.2 Seconds (9.2-11.7); PTT 26.5 Seconds (22.0-36.0)
[2017-03-03 15:27] LABS: ALBUMIN 4.2 g/dL (3.5-5.0); CALCIUM 12.3 mg/dL (8.8-10.2); POTASSIUM 2.9 mmol/L (3.5-5.1); TOTAL BILIRUBIN 0.74 mg/dL (0.20-1.00); TOTAL PROTEIN 7.7 g/dL (6.3-8.3)
[2017-03-03] MEDS ORDERED: NS 1,000 ML IV ONE ×2 (16:54→21:07)
[2017-03-03] MEDS ORDERED: NS 2,000 ML ONE (17:24)
--- NOTE | 2017-03-03 17:51 | PROVIDER DOCUMENTATION ---
This chart was entered by Kevin Fernandez Scribe, acting as scribe for David Lara MD. HPI-General Adult - General Chief Complaint: Weakness Stated Complaint: left sided weakness Time Seen by Provider: 03/03/17 13:38 Source: patient Allergies/Adverse Reactions: Patient Allergies Allergy/AdvReac Type Severity Reaction Status Date / Time No Known Allergies Allergy Verified 01/04/17 20:33 Home Medications: Home Medication List Medication Instructions Recorded Confirmed Last Taken Type Aspirin [Bijal Chewable Aspirin] 81 mg PO DAILY 01/04/17 01/04/17 01/04/17 07: 00 History Calcium Carbonate/Vitamin D3 1 cap PO DAILY 01/04/17 01/04/17 01/04/17 07:00 History [Calcium 600-Vit D3 500 Softgel] Levothyroxine Sodium 88 mcg PO DAILY 01/04/17 01/04/17 01/04/17 07:00 History Ubidecarenone [Coq-10] 200 mg PO DAILY 01/04/17 01/04/17 01/04/17 07:00 History ATORVAstatin [Lipitor] 40 mg PO QHS tablet 01/10/17 Unknown Rx Apixaban [Eliquis] 5 mg PO Q12H #60 tablet 01/10/17 Unknown Rx Metoprolol Succinate E.r. [Toprol 50 mg PO QHS #30 tablet 01/10/17 Unknown Rx Xl] - History of Present Illness -Gen Adult Nature of Presenting Problems: Patient is a 81 y/o F that presents to the ER with generalized weakness and no stamina. patient reports no focal deficits. She just has been weak for 2 days. patient is recovering from a CVA in which it left her left-side weak. She has been doing very well. Location of Pain/Injury: reports: generalized Quality of Pain: reports: other (weakness) Severity: reports: mild, moderate Onset/Duration: reports: gradual, 24 hours ago Timing: reports: improving Context/Activities at Onset: reports: none Modifying Factors: improves with: nothing Associated Symptoms: reports: fatigue, weakness. denies: back/neck pain, dizziness, fever/chills, genitourinary problems, sinus congestion/drainage, nausea, shortness of breath, vomiting Similar Symptoms Previously?: No Recently seen or treated by another doctor?: Yes Review of Systems - Adult - REVIEW OF SYSTEMS - ADULT Constitutional: reports: fatique. denies: chills, fever Eyes: denies: decreased vision, blurred vision, double vision Ears, Nose, Mouth & Throat: reports: no symptoms reported Cardiovascular: denies: chest pain, palpitations Respiratory: denies: cough, shortness of breath, wheezing Gastrointestinal: denies: abdominal pain, diarrhea, nausea, vomiting Genitourinary: denies: dysuria, frequency, hematuria Musculoskeletal: reports: muscle weakness. denies: back pain, joint pain, joint swelling, neck pain Integumentary: reports: no symptoms reported Neurological: denies: dizziness/vertigo, headache/migraines, loss of balance, numbness Psychiatric: reports: no symptoms reported Endocrine: reports: no symptoms reported Hematologic/Lymphatic: reports: no symptoms reported Allergic/Immunologic: reports: no symptoms reported All Other Systems: Reviewed and Negative Past History - Adult - PAST MEDICAL HISTORY-ADULT Review of Records: reports: Old Records Reviewed, Nursing Assessment Review, Medications Reviewed Cardiovascular: reports: HTN, heart valve problem (leaky), hyperlipidemia Genitourinary: reports: cancer (bladder) Neurological: reports: CVA, stroke deficits (left sided) Endocrine/Immune: reports: thyroid disorder (Hypo) - PRIOR SURGERIES/PROCEDURES Surgical/Procedure History: reports: appendectomy, orthopedic (extremity), other (bladder cancer) - IMMUNIZATION STATUS Childhood Immunizations: See Nurse Assessment Flu Vaccine: See Nurse Assessment - FAMILY HISTORY Family History: reviewed, not pertinent - SOCIAL HISTORY Smoking: quit greater than 1 year, cigarettes Substance Use: none/never Alcohol Use Frequency: never Living Situation: care facility (independent living) Physical Exam-General - PHYSICAL EXAM-ADULT Initial Vital Signs Reviewed: Yes - CONSTITUTIONAL General Appearance: alert, no apparent distress - EYES Eyes: PERRL/EOMI, pink conjunctivae - HEAD, EARS, NOSE, MOUTH & THROAT HENMT: normocephalic/atraumatic, moist mucous membranes, normal ENT inspection, TMs normal, pharynx normal - NECK Neck: non-tender, full range of motion, normal inspection - RESPIRATORY Respiratory: lungs clear, normal breath sounds, no respiratory distress, no accessory muscle use - CARDIOVASCULAR Cardiovascular: regular rate, rhythm, no edema, no murmur - GASTROINTESTINAL (ABDOMEN) Abdominal Exam: normal bowel sounds, non tender, soft - MUSCULOSKELETAL Back Exam: no CVA tenderness, no vertebral tenderness Extremity: non-tender, no pedal edema, normal capillary refill, pelvis stable - SKIN Integumentary: normal color, warm/dry - NEUROLOGIC Neurologic: motor weakness (left sided from previous cva). negative: aphasia, EOM palsy, facial droop, sensory deficit - PSYCHIATRIC Psych/Mental Status: normal mood/affect, normal thought content, normal thought process, oriented x 3 Progress - PLAN OF CARE/RESULTS Progress/Plan/Lab Results: Vital Signs Temp Pulse Resp BP Pulse Ox 03/03/17 17:17 72 110/54 97 03/03/17 15:56 71 19 90/57 95 03/03/17 13:40 97.7 F 71 20 103/61 95 No Known Allergies Allergy (Verified 01/04/17 20:33) Aspirin [Bijal Chewable Aspirin] 81 mg PO DAILY 01/04/17 Calcium Carbonate/Vitamin D3 [Calcium 600-Vit D3 500 Softgel] 1 cap PO DAILY Levothyroxine Sodium 88 mcg PO DAILY 01/04/17 Ubidecarenone [Coq-10] 200 mg PO DAILY 01/04/17 ATORVAstatin [Lipitor] 40 mg PO QHS tablet 01/10/17 Apixaban [Eliquis] 5 mg PO Q12H #60 tablet 01/10/17 Metoprolol Succinate E.r. [Toprol Xl] 50 mg PO QHS #30 tablet 01/10/17 Laboratory 03/03/17 03/03/17 03/03/17 14:11 14:11 14:11 WBC RBC Hgb Hct MCV MCH MCHC RDW Std Deviation Plt Count MPV Neut % (Auto) Lymph % (Auto) Cooke % (Auto) Eos % (Auto) Baso % (Auto) Neut # (Auto) Lymph # (Auto) Cooke # (Auto) Eos # (Auto) Baso # (Auto) PT 16.2 H INR 1.50 PTT (Actin FS) 26.5 Sodium Potassium Chloride Carbon Dioxide Anion Gap BUN Creatinine Estimated GFR/1.73 m2 BUN/Creatinine Ratio Glucose POC Glucose 99 Calculated Osmolality Calcium Total Bilirubin AST ALT Alkaline Phosphatase Troponin T < 0.010 Total Protein Albumin Globulin Albumin/Globulin Ratio 03/03/17 03/03/17 14:11 14:11 WBC 9.95 RBC 4.84 Hgb 15.1 Hct 45.4 MCV 93.8 MCH 31.2 H MCHC 33.3 RDW Std Deviation 14.5 Plt Count 233 MPV 11.4 H Neut % (Auto) 75.9 H Lymph % (Auto) 12.1 L Cooke % (Auto) 10.3 H Eos % (Auto) 1.3 Baso % (Auto) 0.4 Neut # (Auto) 7.56 H Lymph # (Auto) 1.20 Cooke # (Auto) 1.02 H Eos # (Auto) 0.13 Baso # (Auto) 0.04 PT INR PTT (Actin FS) Sodium 144 Potassium 2.9 L Chloride 98 Carbon Dioxide 29 Anion Gap 17 BUN 34 H Creatinine 1.8 H Estimated GFR/1.73 m2 27 BUN/Creatinine Ratio 19 Glucose 97 POC Glucose Calculated Osmolality 294 Calcium 12.3 H* Total Bilirubin 0.74 AST 22 ALT 14 Alkaline Phosphatase 108 H Troponin T Total Protein 7.7 Albumin 4.2 Globulin 3.5 Albumin/Globulin Ratio 1.2 Orders Category Date Time Status Cardiac Monitoring DIRECTED Care 03/03/17 13:47 Active Finger Stick Blood Sugar (ED) DIRECTED Care 03/03/17 13:47 Active Misc. NRSG Communication Order DIRECTED Care 03/03/17 13:47 Active Saline Loc NOW Care 03/03/17 13:47 Active CHEST-PORTABLE [RAD] Stat Exams 03/03/17 13:49 Completed CBC WITH ELECTRONIC DIFF [HEME] Stat Lab 03/03/17 14:11 Completed COMPREHENSIVE METABOLIC PANEL [CHEM] Stat Lab 03/03/17 14:11 Completed PROTIME WITH INR [COAG] Stat Lab 03/03/17 14:11 Completed PTT [COAG] Stat Lab 03/03/17 14:11 Completed TROPONIN T Stat Lab 03/03/17 14:11 Completed URINALYSIS W/POSS RFLX CULT-1 [URINALYSIS] Stat Lab 03/03/17 14:13 Ordered 0.9% Sodium Chloride Inj [Ns] 1,000 ml Med 03/03/17 17:24 Discontinued .ROUTE As Directed 0.9% Sodium Chloride Inj [Ns] 1,000 ml Med 03/03/17 16:54 Active IV 250 mls/hr EKG [EKG] Stat Ther 03/03/17 13:47 Ordered Result Diagrams: 03/03/17 14:11 03/03/17 14:11 - EKG 1 Time of EKG reading by physician:: 13:39 EKG Read and Signed by:: David Lara EKG Interpretation (*Must complete 3 of following elements*): Abnormal Rate: 78 Rhythm: a-fib QRS: RBB, LVH ST Wave: normal - XRAY 1 XRAY Study: Chest Impression: Normal XRAY Interpretation: negative - CONSULTS/PCP/HOSPITALIST Notification #1 *Consult/PCP/Hospitalist*: ( managing consultant for ) Time Discussed: 17:45 Reason/Comments: admit to service Consult Disposition: Admit Departure - Departure Date of Disposition Decision: 03/03/17 Time of Disposition Decision: 17:47 DIAGNOSIS: Hypercalcemia, Hypokalemia, Renal insufficiency Disposition: ADMITTED INPATIENT 09 Certified Medical Emergency: Emergent Condition: Stable Referrals and Follow-Ups: None,PCP [Primary Care Provider] - - Critical Care Note This patient required my direct & personal management of CC.: No Attestation - Physician/ SWATI Attestation The physician spent face to face time with patient:: Yes Advanced Practice Provider documentation review:: Supervising physician onsite and consulted in the evaluation and care of this patient. The physician did have a face to face encounter with the patient. This chart was documented by the indicated scribe, (Kevin Fernandez, Scribe) and accurately reflects the services I performed and decisions made by me, David Lara MD, as attested by the provider's signature.
--- NOTE | 2017-03-03 20:32 | HISTORY AND PHYSICAL ---
HISTORY OF PRESENT ILLNESS: Ms. Jolley was last admitted here on 01/04/2017 at which time she had a right parietal CVA with left-sided hemiparesis. She did show improvement. She went to [facility] I think for 3 weeks and then went back to her independent apartment at I think [place]. Since she has been home her sister says that she has really not done very well. She is not eating well. She is very weak. She only takes little steps. She has fallen 3 or 4 times. They are concerned and they brought her here to the emergency room. She denies fever or chills. She deny chest pain. She is not really having confusion or delirium. She denies any trouble with urination or having bowel movements but she is just not hungry. She claims she is eating and family says she is eating very little. Her main concern is increased weakness and several falls. DISCHARGE DIAGNOSES: 1. Acute right hemispheric cerebral infarct with hemiparesis. 2. Suspected transient atrial fibrillation. 3. Essential hypertension. 4. Hyperlipidemia. 5. Hypothyroidism. 6. History of bladder cancer. PAST MEDICAL HISTORY: 1. Bladder cancer. 2. Hypertension. 3. Hyperlipidemia. 4. 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 PAST SURGICAL HISTORY: 1. Thyroidectomy. 2. Questionable appendectomy. The patient states she had her appendix removed, however, she does not have documentation on that. Previous documentation did say she had an appendectomy. 3. Tonsillectomy. 4. Left hip replacement. 5. Colon resection. 6. Bladder cancer with subsequent surgery. SOCIAL HISTORY: Lives at [facility]. Denies tobacco, alcohol or illicit drugs. FAMILY HISTORY: Mother had colon cancer. Father had hypertension. Paternal grandmother had diabetes mellitus. Sister who was at the bedside has had a history of atrial fibrillation who had a pacemaker and coronary artery disease. ALLERGIES: No known drug allergies. CURRENT MEDICATIONS: Lipitor 40 mg daily, aspirin 162 mg daily, calcium carbonate 600, vitamin D3, 500 soft gel 1 b.i.d., levothyroxine 88 mcg daily, Toprol-XL 50 mg at bedtime, CoQ 200 mg p.o. daily, vitamin A 10,000 units p.o. at bedtime. PHYSICAL EXAMINATION: VITAL SIGNS: Afebrile, temp 97.7 degrees, pulse 73, respirations 19, blood pressure 100/59, O2 saturations 97% on room air. Weight is 245 pounds. HEENT: Pupils are equal, round. CVP less than 6 cm. LUNGS: Clear in all lung rivera. CARDIOVASCULAR: Regular rhythm and rate, without murmur or S3. ABDOMEN: Soft. SKIN: Warm and dry. NEUROLOGIC: She is awake and alert. LAB: White count 9950, hematocrit is 45, platelet count 233,000. Sodium 144, potassium 2.9, chloride 98, bicarbonate 29, BUN 34, creatinine 1.8, blood sugar 97. Calcium was 12.3. AST and ALT 22 and 14 respectively. Alkaline phosphatase 108, pro time 16.2, PTT 26. Chest x-ray: Negative chest. Lungs are clear. ASSESSMENT AND PLAN: 1. General weakness and deconditioning. I do not see anything specific. She does have a little bit of hypercalcemia. We will give her some fluids. She may be a little dry. Her serum creatinine was 1.3. Looking back at her previous creatinine she also has a low potassium. We will supplement her potassium. I think we ought to check her magnesium level. We checked T4, TSH, B12 and folate. See if we need to consider checking parathyroid hormone. Her albumin is 4.2. 2. Recent cerebrovascular accident: Right parietal CVA with left hemiparesis or partial paresis, and she has made improvement with physical therapy. 3. Suspected transient atrial fibrillation in the past. She is in atrial fibrillation at the present time. Rate is controlled. She has a right bundle branch block. We will keep her on monitor and watch her rate. 4. Essential hypertension. 5. Hyperlipidemia. 6. Hypothyroidism. 7. History of bladder cancer in the past. cc: Trenton Salmeron MD
[2017-03-03] MEDS ORDERED: VANCOMYCIN 1 GM/NS 1 GM/250 ML IVPB IV ONE (22:09)
[2017-03-03] MEDS: ZOSYN 3.375 GM in NS 50 ML IV SCH (23:10)
--- NOTE | 2017-03-03 23:28 | ED EKG INTERP ---
This chart was entered by Rosenda Lai Scribe, acting as scribe for Harvey Whiting MD. EKG Interpretation - EKG Time of EKG reading by physician:: 20:48 EKG Read and Signed by:: Harvey Whiting EKG Interpretation (*Must complete 3 of following elements*): Abnormal Rate: 61 Rhythm: normal sinus rhythm Comments: abnormal ECG Attestation - Physician/ SWATI Attestation Patient care was provided by Advanced Practice Provider:: No The physician spent face to face time with patient:: Yes Advanced Practice Provider documentation review:: Supervising physician onsite and consulted in the evaluation and care of this patient. The physician did have a face to face encounter with the patient. This chart was documented by the indicated scribe, (Rosenda Lai Scribe) and accurately reflects the services I performed and decisions made by me, Harvey Whiting MD, as attested by the provider's signature.
--- NOTE | 2017-03-04 01:58 | ED EKG INTERP ---
This chart was entered by Rosenda Lai Scribe, acting as scribe for Harvey Whiting MD. EKG Interpretation - EKG Time of EKG reading by physician:: 23:00 EKG Read and Signed by:: Harvey Whiting EKG Interpretation (*Must complete 3 of following elements*): Abnormal Rate: 61 Rhythm: sinus rhythm with premature supraventricular complexes Comments: abnormal ECG Attestation - Physician/ SWATI Attestation Patient care was provided by Advanced Practice Provider:: No The physician spent face to face time with patient:: Yes Advanced Practice Provider documentation review:: Supervising physician onsite and consulted in the evaluation and care of this patient. The physician did have a face to face encounter with the patient. This chart was documented by the indicated scribe, (Roesnda Lai Scribe) and accurately reflects the services I performed and decisions made by me, Harvey Whiting MD, as attested by the provider's signature.
[2017-03-04] MEDS ORDERED: VANCOMYCIN 1 GM/NS 1 GM/250 ML IVPB IV ONE (02:00)
[2017-03-04] MEDS ORDERED: TOPROL XL PO SCH (03:13)
[2017-03-04] MEDS ORDERED: TYLENOL PO PRN ×2 (03:13→22:42)
[2017-03-04] MEDS: LIPITOR PO SCH ×2 (05:15→20:30)
[2017-03-04] MEDS: NS + KCL 40 MEQ 1,000 ML IV SCH ×2 (05:20→15:21)
--- NOTE | 2017-03-04 05:30 | EKG Report ---
Test Performed on : 03/03/2017 11:00:23 PM Test Reason : WEAKNESS Blood Pressure : / mmHG Vent. Rate : 061 BPM Atrial Rate : 061 BPM P-R Int : 136 ms QRS Dur : 114 ms QT Int : 448 ms P-R-T Axes : 020 -18 009 degrees QTc Int : 450 ms Sinus rhythm. with premature supraventricular complexes. Incomplete right bundle branch block Nonspecific ST and T wave abnormality Abnormal ECG When compared with ECG of 03-MAR-2017 20:48, (Unconfirmed) premature supraventricular complexes. are now present Incomplete right bundle branch block is now present ST elevation now present in Inferior leads Unconfirmed Result
--- NOTE | 2017-03-04 05:31 | EKG Report ---
Test Performed on : 03/03/2017 1:39:46 PM Test Reason : Stroke like symptoms Blood Pressure : / mmHG Vent. Rate : 078 BPM Atrial Rate : 625 BPM P-R Int : 000 ms QRS Dur : 136 ms QT Int : 416 ms P-R-T Axes : 000 -23 -16 degrees QTc Int : 474 ms Atrial fibrillation. Right bundle branch block Minimal voltage criteria for LVH, may be normal variant Inferior infarct , age undetermined Abnormal ECG When compared with ECG of 05-JAN-2017 06:30, Atrial fibrillation. has replaced Sinus rhythm. Inferior infarct is now present Inverted T waves have replaced nonspecific T wave abnormality in Anterior leads Unconfirmed Result
--- NOTE | 2017-03-04 05:31 | EKG Report ---
Test Performed on : 03/03/2017 8:48:19 PM Test Reason : Stroke like symptoms Blood Pressure : / mmHG Vent. Rate : 061 BPM Atrial Rate : 062 BPM P-R Int : 152 ms QRS Dur : 074 ms QT Int : 472 ms P-R-T Axes : 068 -16 002 degrees QTc Int : 475 ms Normal sinus rhythm. Inferior infarct (cited on or before 03-MAR-2017) Abnormal ECG When compared with ECG of 03-MAR-2017 13:39, (Unconfirmed) Sinus rhythm. has replaced Atrial fibrillation. Right bundle branch block is no longer present Unconfirmed Result
[2017-03-04 05:34] LABS: URINE MICRO REVIEW NEEDED? NO; URINE SOURCE CATH
[2017-03-04 05:41] LABS: BILIRUBIN URINE NEGATIVE (NEGATIVE); BLOOD URINE TRACE (NEGATIVE); COLOR YELLOW; GLUCOSE URINE NEGATIVE (NEGATIVE); LEUKOCYTES URINE LARGE (NEGATIVE); NITRITE URINE POSITIVE (NEGATIVE); PH URINE 5.5; PROTEIN URINE 30 mg/dL (NEGATIVE); SP GRAVITY URINE 1.019; TURBIDITY URINE HAZY (CLEAR); UROBILINOGEN URINE NORMAL (NORMAL)
[2017-03-04 05:42] LABS: UR EPITHELIAL CELLS <10 /HPF (<10); URINE BACTERIA NEGATIVE /HPF; URINE CULTURE NEEDED? YES; URINE RBC <10 /HPF (<10); URINE WBC TNTC /HPF (<10)
[2017-03-04] MEDS ORDERED: SYNTHROID PO SCH (07:00)
--- NOTE | 2017-03-04 07:13 | EKG Report ---
Test Performed on : 03/04/2017 06:11:36 AM Test Reason : chest pain Blood Pressure : / mmHG Vent. Rate : 063 BPM Atrial Rate : 063 BPM P-R Int : 178 ms QRS Dur : 140 ms QT Int : 462 ms P-R-T Axes : 070 -25 -07 degrees QTc Int : 472 ms Sinus rhythm. with premature supraventricular complexes. Right bundle branch block Inferior infarct , age undetermined Abnormal ECG When compared with ECG of 03-MAR-2017 23:00, QRS axis shifted left Inferior leads ST less depressed in V3 Nonspecific ST abnormality V2 Confirmed by William Henry DO ([id number]) on 03/08/2017 12:10:29 PM
[2017-03-04 07:18] LABS: MANUAL DIFF NEEDED? NO
[2017-03-04 07:24] LABS: BASO% 0.5 % (0.0-0.8); EOS# 0.23 X1000 (0.0-0.7); EOS% 2.8 % (0.0-10.0); HEMATOCRIT 39.1 % (37.0-47.0); IMM GRAN# 0.04 X1000 (0.0-0.04); IMM GRAN% 0.5 % (0.0-0.5); LYMPH# 1.29 X1000 (1.2-3.4); LYMPH% 15.4 % (20.5-51.1); MCH 30.7 PG (27-31); MCHC 33.2 g/dL (33-37); MCV 92.4 FL (81-99); MONO# 0.84 X1000 (0.11-0.59); MONO% 10.1 % (1.7-9.3); MPV 11.5 FL (7.4-10.4); NEUT% 70.7 % (42.2-75.2); PLT 196 X1000 (130-400); RBC 4.23 XMIL (4.2-5.4)
[2017-03-04 07:48] LABS: ALBUMIN 3.1 g/dL (3.5-5.0); CALCIUM 10.4 mg/dL (8.8-10.2); MAGNESIUM 1.2 mg/dL (1.5-2.7); POTASSIUM 2.9 mmol/L (3.5-5.1); TOTAL BILIRUBIN 0.76 mg/dL (0.20-1.00); TOTAL PROTEIN 6.3 g/dL (6.3-8.3)
[2017-03-04 08:00] LABS: FREE T4 1.33 ng/dL (0.93-1.70)
[2017-03-04] MEDS ORDERED: CALTRATE 600 + D PO SCH (09:00)
[2017-03-04] MEDS ORDERED: ASPIRIN PO SCH (09:00)
[2017-03-04] MEDS ORDERED: COENZYME Q10 PO SCH (09:00)
[2017-03-04] MEDS ORDERED: NS 500 ML IV ONE (09:53)
[2017-03-04] MEDS ORDERED: K-LYTE CL PO ONE (09:55)
[2017-03-04] MEDS: ZOSYN 3.375 GM in NS 50 ML IV SCH ×4 (11:00→23:23)
[2017-03-04] MEDS ORDERED: ZOLOFT PO SCH (13:15)
[2017-03-04] MEDS ORDERED: PATIENT'S OWN MED PO SCH (21:00)
[2017-03-04] MEDS ORDERED: MAG-OX PO SCH (21:00)
[2017-03-04] MEDS ORDERED: NS + KCL 40 MEQ 1,000 ML IV SCH (23:00)
[2017-03-04] MEDS: CALTRATE 600 + D PO SCH (23:24)
[2017-03-05] MEDS: ZOSYN 3.375 GM in NS 50 ML IV SCH (06:35)
[2017-03-05] MEDS: SYNTHROID PO SCH (06:36)
[2017-03-05 08:04] LABS: CALCIUM 10.1 mg/dL (8.8-10.2); MAGNESIUM 1.2 mg/dL (1.5-2.7); POTASSIUM 3.8 mmol/L (3.5-5.1)
[2017-03-05] MEDS: ZOLOFT PO SCH (09:55)
[2017-03-05] MEDS: MAG-OX PO SCH (09:55)
[2017-03-05] MEDS: COENZYME Q10 PO SCH (09:55)
[2017-03-05] MEDS: ASPIRIN PO SCH (09:55)
[2017-03-05] MEDS: CALTRATE 600 + D PO SCH ×2 (09:56→20:38)
[2017-03-05] MEDS: KLOR-CON PO SCH ×2 (10:06→20:38)
[2017-03-05] MEDS: SEPTRA DS PO SCH ×2 (10:06→20:38)
[2017-03-05] MEDS: TOPROL XL PO SCH (20:38)
[2017-03-05] MEDS: LIPITOR PO SCH (20:38)
[2017-03-05] MEDS: PATIENT'S OWN MED PO SCH (20:39)
[2017-03-06 07:46] LABS: CALCIUM 9.8 mg/dL (8.8-10.2); POTASSIUM 4.3 mmol/L (3.5-5.1)
[2017-03-06] MEDS: KLOR-CON PO SCH ×2 (08:42→21:30)
[2017-03-06] MEDS: ZOLOFT PO SCH (08:42)
[2017-03-06] MEDS: SYNTHROID PO SCH (08:42)
[2017-03-06] MEDS: CALTRATE 600 + D PO SCH ×2 (08:42→23:04)
[2017-03-06] MEDS: SEPTRA DS PO SCH ×2 (08:42→23:04)
[2017-03-06] MEDS: ASPIRIN PO SCH (08:42)
[2017-03-06] MEDS: MAG-OX PO SCH (08:42)
[2017-03-06] MEDS: COENZYME Q10 PO SCH (08:42)
[2017-03-06] MEDS: LIPITOR PO SCH (23:04)
[2017-03-06] MEDS: TOPROL XL PO SCH (23:04)
[2017-03-07] MEDS: PATIENT'S OWN MED PO SCH (02:30)
[2017-03-07] MEDS: SYNTHROID PO SCH (07:36)
[2017-03-07 08:09] VITALS: BP 122/59
[2017-03-07] MEDS: ZOLOFT PO SCH (08:39)
[2017-03-07] MEDS: CALTRATE 600 + D PO SCH (08:40)
[2017-03-07] MEDS: SEPTRA DS PO SCH (08:40)
[2017-03-07] MEDS: ASPIRIN PO SCH (08:40)
[2017-03-07] MEDS: COENZYME Q10 PO SCH (08:40)
[2017-03-07] MEDS: MAG-OX PO SCH (08:40)
--- NOTE | 2017-03-09 09:10 | DISCHARGE SUMMARY ---
ADMISSION DATE: 03/03/2017 DISCHARGE DATE: 03/07/2017 FINAL DIAGNOSIS: 1. Generalized weakness with frequent falls at home. 2. 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 3. Essential hypertension. 4. Hypothyroidism. 5. Hyperlipidemia. PRESENT ILLNESS: Ms. Jolley is an 81-year-old white female who presented to the emergency room accompanied by her sister who was concerned because she had not been eating or drinking much for several days, was very weak and fallen 3 or 4 times at home. She was hospitalized 2 months ago with acute stroke and went to rehab. Came home from rehab approximately 6 weeks ago. Initially she seemed to do fairly well but in the last 4-7 days she has struggled at home, as noted above. PHYSICAL EXAMINATION: General: Revealed an obese, elderly woman. Lungs: Clear lung rivera. Cardiac: Regular, unremarkable. Neurologic: She was awake and alert with mild left arm clumsiness. No appreciable left leg weakness. LABORATORY: Her potassium was quite low at 2.9, BUN 34, creatinine 1.8, significantly above her baseline of approximately 18 and 1.0. She was mildly hypercalcemia with a calcium of 12.3. HOSPITAL COURSE: She was treated with intravenous fluids and intravenous potassium and her electrolytes and calcium returned to normal. Review of her previous calcium showed no previous hypercalcemia and this was felt to be due to acute dehydration. Her urinalysis did indicate a urinary tract infection. Culture grew E. coli sensitive to Bactrim and Macrobid. With treatment of her UTI and replacement of her IV fluids, her appetite returned and she was able to transfer independently to a bedside chair. She has been living at the independent portion of the [facility] and application has been made to move her temporarily to the assisted living portion of the [facility] until she becomes more independent. Unfortunately there is not a bed available now and her sister has agreed to take her back to the independent living with extra hired sitters until they can get the full assisted living experience. Arrangements were made for home health physical therapy. DISCHARGE MEDICATIONS: Aspirin 162 mg daily, Caltrate plus D 1 b.i.d., Synthroid 88 mcg daily, magnesium oxide 400 mg daily, metoprolol succinate 50 mg at bedtime, Coenzyme Q10 200 mg daily, atorvastatin 40 mg at bedtime, sertraline 25 mg q.a.m. for adjustment disorder with depressed mood. FOLLOW UP: She is to return to my office in 1-2 weeks for follow up. cc: Nacho Leos MD
== END 2017-03-07 10:21 | disposition home or self-care (01) ==
LOC: SUPCPDRO → ED 13:32 → EDIPHOLD 23:52 → ICU 03-04 14:57 → 3N 03-04 21:40
PROVIDERS: ADMIT Internal Medicine; ATTEND Internal Medicine

== ENCOUNTER 2017-03-11 04:03 | Inpatient (IN) ==
[2017-03-11] MEDS ORDERED: QUELICIN IV ONE (04:13)
[2017-03-11] MEDS ORDERED: VERSED IV ONE (04:13)
[2017-03-11] MEDS ORDERED: DIPRIVAN 1% 2,000 MG/200 ML BOTTLE ONE (04:17)
[2017-03-11 04:28] LABS: MANUAL DIFF NEEDED? NO
[2017-03-11 04:35] LABS: BASO% 0.7 % (0.0-0.8); EOS# 0.29 X1000 (0.0-0.7); EOS% 2.7 % (0.0-10.0); HEMOGLOBIN 13.8 g/dL (12.0-16.0); IMM GRAN# 0.14 X1000 (0.0-0.04); IMM GRAN% 1.3 % (0.0-0.5); LYMPH# 2.69 X1000 (1.2-3.4); LYMPH% 24.9 % (20.5-51.1); MCH 30.7 PG (27-31); MCHC 32.9 g/dL (33-37); MCV 93.5 FL (81-99); MONO# 0.91 X1000 (0.11-0.59); MONO% 8.4 % (1.7-9.3); PLT 263 X1000 (130-400); RBC 4.49 XMIL (4.2-5.4)
[2017-03-11 04:41] LABS: INR 1.46; PROTIME 15.7 Seconds (9.2-11.7); PTT 23.6 Seconds (22.0-36.0)
--- NOTE | 2017-03-11 04:54 | PROVIDER DOCUMENTATION ---
HPI-Respiratory General - General Chief Complaint: Altered Mental Status Stated Complaint: UNRESPONSIVE Time Seen by Provider: 03/11/17 04:51 Source: EMS (Patient is a 81 year old white female with history of CVA who presents by EMS from local residential with acute shortness of breath and altered mentation. Upon arrival patient was intubated to secure airway.) Allergies/Adverse Reactions: Patient Allergies Allergy/AdvReac Type Severity Reaction Status Date / Time No Known Allergies Allergy Verified 01/04/17 20:33 Home Medications: Home Medication List Medication Instructions Recorded Confirmed Last Taken Type Aspirin [Bijal Chewable Aspirin] 162 mg PO DAILY 01/04/17 03/03/17 03/03/17 08: 00 History Calcium Carbonate/Vitamin D3 1 cap PO BID 01/04/17 03/03/17 03/03/17 08:00 History [Calcium 600-Vit D3 500 Softgel] Levothyroxine Sodium 88 mcg PO DAILY 01/04/17 03/03/17 03/03/17 07:00 History Ubidecarenone [Coq-10] 200 mg PO DAILY 01/04/17 03/03/17 03/03/17 08:00 History ATORVAstatin [Lipitor] 40 mg PO QHS tablet 01/10/17 03/03/17 03/02/17 18:00 Rx Metoprolol Succinate E.r. [Toprol 50 mg PO QHS #30 tablet 01/10/17 03/03/17 18:00 Rx Xl] ATORVAstatin [Lipitor] 40 mg PO QHS tablet 03/07/17 Unknown Rx Aspirin 162 mg PO DAILY chewtab 03/07/17 Unknown Rx Calcium Carbonate/Vit D3 [Caltrate 1 each PO BID tablet 03/07/17 Unknown Rx 600 + D] Levothyroxine [Synthroid] 88 microgm PO DAILY@0700 tablet 03/07/17 Unknown Rx Magnesium Oxide [Mag-Ox] 400 mg PO DAILY tablet 03/07/17 Unknown Rx Metoprolol Succinate E.r. [Toprol 50 mg PO HS tablet 03/07/17 Unknown Rx Xl] Patient's Own Med 1 each PO HS misc 03/07/17 Unknown Rx Sertraline [Zoloft] 25 mg PO QAM #30 tablet 03/07/17 Unknown Rx Ubidecarenone [Coenzyme Q10] 200 mg PO DAILY capsule 03/07/17 Unknown Rx - History of Present Illness-Resp Onset/Duration: reports: unsure Review of Systems - Adult - REVIEW OF SYSTEMS - ADULT ROS:: unobtainable per condition Constitutional: reports: see HPI Past History - Adult - PAST MEDICAL HISTORY-ADULT Review of Records: reports: Old Records Reviewed, Nursing Assessment Review, Medications Reviewed, Social history reviewed & non-contributory. Cardiovascular: reports: HTN, heart valve problem (leaky), hyperlipidemia Genitourinary: reports: cancer (bladder) Neurological: reports: CVA, stroke deficits (left sided) Endocrine/Immune: reports: thyroid disorder (Hypo) - PRIOR SURGERIES/PROCEDURES Surgical/Procedure History: reports: appendectomy, orthopedic (extremity), other (bladder cancer) - IMMUNIZATION STATUS Childhood Immunizations: See Nurse Assessment Flu Vaccine: See Nurse Assessment - FAMILY HISTORY Family History: reviewed, not pertinent Physical Exam-General - CONSTITUTIONAL General Appearance: severe distress, lethargic, slow to respond - EYES Eyes: other (clear,PERRL) - HEAD, EARS, NOSE, MOUTH & THROAT HENMT: moist mucous membranes - NECK Neck: supple - RESPIRATORY Respiratory: decreased breath sounds, other (shallow respirations) - CARDIOVASCULAR Cardiovascular: tachycardia - GASTROINTESTINAL (ABDOMEN) Abdominal Exam: soft, no organomegaly Progress - PLAN OF CARE/RESULTS Progress/Plan/Lab Results: Vital Signs - 8 hr 03/11/17 04:11 03/11/17 04:22 03/11/17 04:53 Pulse Rate 146 H 93 H 83 Respiratory Rate 22 20 14 Blood Pressure 203/135 85/50 96/82 O2 Sat by Pulse Oximetry 84 L 100 100 Laboratory Results - last 24 hr 03/11/17 03/11/17 03/11/17 04:09 04:24 04:24 WBC 10.81 H RBC 4.49 Hgb 13.8 Hct 42.0 MCV 93.5 MCH 30.7 MCHC 32.9 L RDW Std Deviation 14.6 H Plt Count 263 MPV 11.0 H Immature Gran % (Auto) 1.3 H Neut % (Auto) 62.0 Lymph % (Auto) 24.9 [place] % (Auto) 8.4 Eos % (Auto) 2.7 Baso % (Auto) 0.7 Immature Gran # (Auto) 0.14 H Neut # (Auto) 6.70 H Lymph # (Auto) 2.69 [place] # (Auto) 0.91 H Eos # (Auto) 0.29 Baso # (Auto) 0.08 PT 15.7 H INR 1.46 PTT (Actin FS) 23.6 POC Glucose 149 H D Orders Category Date Time Status Cardiac Monitoring DIRECTED Care 03/11/17 04:20 Active Finger Stick Blood Sugar (ED) DIRECTED Care 03/11/17 04:20 Active [place] Cath Insertion ORDERED Care 03/11/17 04:59 Active NG/OG/Feeding Tube Insertion ORDERED Care 03/11/17 04:22 Active Oxygen Therapy- ED Nursing DIRECTED Care 03/11/17 04:20 Active Saline Loc NOW Care 03/11/17 04:20 Active CHEST-PORTABLE [RAD] Stat Exams 03/11/17 04:[address] HEAD W/O CONTRAST [CT] Stat Exams 03/11/17 04:21 Taken ABG [RESP] Routine Lab 03/11/17 04:20 Ordered ALCOHOL BLOOD Stat Lab 03/11/17 04:24 Received CBC WITH ELECTRONIC DIFF [HEME] Stat Lab 03/11/17 04:24 Completed CK PROFILE [SP CHEM] Stat Lab 03/11/17 04:24 Received COMPREHENSIVE METABOLIC PANEL [CHEM] Stat Lab 03/11/17 04:24 Received LACTATE, PLASMA [CHEM] Stat Lab 03/11/17 04:20 Uncollected PROTIME WITH INR [COAG] Stat Lab 03/11/17 04:24 Completed PTT [COAG] Stat Lab 03/11/17 04:24 Completed TROPONIN T Stat Lab 03/11/17 04:24 Received UA NIMS W/REFLEX CULT [URINALYSIS] Stat Lab 03/11/17 05:02 Ordered URINALYSIS W/POSS RFLX CULT-1 [URINALYSIS] Stat Lab 03/11/17 05:01 Ordered URINE DRUG SCREEN Stat Lab 03/11/17 05:01 Ordered Midazolam [Versed] Med 03/11/17 04:13 Discontinued 5 mg IV NOW ONE Propofol [Diprivan 1%] Med 03/11/17 05:01 Discontinued 100 mg IV STAT ONE Propofol [Diprivan 1%] Med 03/11/17 04:17 Discontinued 1,000 mg in 100 ml .ROUTE As Directed Propofol [Diprivan 1%] Med 03/11/17 04:57 Active 1,000 mg in 100 ml IV As Directed Succinylcholine [Quelicin] Med 03/11/17 04:13 Discontinued 100 mg IV NOW ONE Pulse Oximetry Stat Oth 03/11/17 04:20 Active EKG [EKG] Stat Ther 03/11/17 04:20 Ordered report given to hospitalist, Dr. Bello at 0500 Result Diagrams: 03/11/17 04:24 - EKG 1 Time of EKG reading by physician:: 04:46 EKG Interpretation (*Must complete 3 of following elements*): Abnormal Rate: 82 Ow[place]: left QRS: RBB CO Interval: normal ST Wave: normal Prior EKG Comparison: no prior EKG Procedures - INTUBATION Time of Intubation: 04:30 Mallampati Class: 2 Intubation Method: orotracheal Equipment: ETT, Bougie Tube Size (cm): 7.5 Pretreated with 100% Oxygen?: Yes Breath Sounds after Intubation: equal ETT Primary Tube Confirmation: Capnometry CO2 Change, Direct Visualization, Chest Rise and Fall, Tube placement verified on XRAY Intubation Complications: no complications Departure - Departure Date of Disposition Decision: 03/11/17 Time of Disposition Decision: 05:05 DIAGNOSIS: Respiratory arrest Disposition: ADMITTED INPATIENT 09 Certified Medical Emergency: Emergent Condition: Critical Referrals and Follow-Ups: None,PCP [Primary Care Provider] - - Critical Care Note This patient required my direct & personal management of CC.: Yes Attestation - Physician/ SWATI Attestation Patient care was provided by Advanced Practice Provider:: No The physician spent face to face time with patient:: Yes Advanced Practice Provider documentation review:: Supervising physician onsite and consulted in the evaluation and care of this patient. The physician did have a face to face encounter with the patient.
[2017-03-11] MEDS ORDERED: DIPRIVAN 1% IV ONE (05:01)
[2017-03-11] MEDS: DIPRIVAN 1% 1,000 MG/100 ML BOTTLE IV SCH ×7 (05:06→19:10)
--- NOTE | 2017-03-11 05:18 | EKG Report ---
Test Performed on : 03/11/2017 04:45:47 AM Test Reason : UNRESPONSIVE Blood Pressure : / mmHG Vent. Rate : 082 BPM Atrial Rate : 089 BPM P-R Int : 168 ms QRS Dur : 120 ms QT Int : 420 ms P-R-T Axes : 000 -18 028 degrees QTc Int : 490 ms Sinus rhythm. with premature atrial complexes. Right bundle branch block Abnormal ECG When compared with ECG of 04-MAR-2017 06:11, QRS duration has decreased Unconfirmed Result
[2017-03-11 05:19] LABS: ALBUMIN 3.8 g/dL (3.5-5.0); POTASSIUM 4.6 mmol/L (3.5-5.1); TOTAL BILIRUBIN 0.52 mg/dL (0.20-1.00); TOTAL PROTEIN 7.1 g/dL (6.3-8.3)
[2017-03-11] MEDS ORDERED: ATIVAN IV ONE (05:41)
[2017-03-11] MEDS ORDERED: ATIVAN ONE (05:43)
[2017-03-11 05:52] LABS: ALLEN TEST YES; BE -2.3 mmoll (-3.0-3.0); BLOOD TYPE ARTERIAL; DRAW SITE R RADIAL; METHB 1.4 % (0.0-1.5); O2(CT) 17.7 mL/dL (15.0-23.0); PCO2(98.6) 32 mmHg (35-45); PO2(98.6) 216 mmHg (60-100); SAMPLE BLOOD; SAO2 99.8 % (95.0-100.0); SRATE 14 BPM; THB 12.6 g/dL (11.5-17.4); TVOL 500 mL; pH(98.6) 7.43 (7.35-7.45)
[2017-03-11 05:54] LABS: MODALITY VENTILATOR
[2017-03-11] MEDS ORDERED: KEPPRA 1,000 MG in NS 100 ML IV ONE ×2 (06:02→13:00)
[2017-03-11] MEDS: ATIVAN IV PRN ×4 (07:28→20:15)
[2017-03-11 07:39] LABS: URINE CULTURE NEEDED? NO; URINE SOURCE CATH
[2017-03-11 07:44] LABS: BILIRUBIN URINE SMALL (NEGATIVE); BLOOD URINE TRACE (NEGATIVE); COLOR YELLOW; GLUCOSE URINE NEGATIVE (NEGATIVE); LEUKOCYTES URINE NEGATIVE (NEGATIVE); NITRITE URINE NEGATIVE (NEGATIVE); PROTEIN URINE 100 mg/dL (NEGATIVE); SP GRAVITY URINE 1.022; TURBIDITY URINE HAZY (CLEAR); UROBILINOGEN URINE NORMAL (NORMAL)
--- NOTE | 2017-03-11 07:44 | Diag Imaging Result Doc PS360 ---
CHEST-PORTABLE - 03/11/2017 INDICATION: AMS TECHNIQUE: COMPARISON: 03/03/2017 FINDINGS: There is an endotracheal tube at T3. Nasogastric tube in the stomach. The lungs are grossly clear and the heart size is normal. There is some sort of metallic object projecting over the superior mediastinum at T3. IMPRESSION: Nonspecific findings. Electronically signed by Nitin Chacko 03/11/2017 7:42 AM
[2017-03-11 07:46] LABS: URINE MICRO REVIEW NEEDED? YES
[2017-03-11 07:50] LABS: UR EPITHELIAL CELLS >10 /HPF (<10); URINE BACTERIA NEGATIVE /HPF; URINE WBC <10 /HPF (<10)
[2017-03-11 07:54] LABS: URINE CASTS NONE SEEN
[2017-03-11 07:55] LABS: UR AMPHETAMINES MT NONE DETECTED (NONE DETECT); UR BARBITUATES MT NONE DETECTED (NONE DETECT); UR BENZODIAZ MT NONE DETECTED (NONE DETECT); UR CANNABIS MEDTOX NONE DETECTED (NONE DETECT); UR COCAINE MT NONE DETECTED (NONE DETECT); UR METHADONE MEDTOX NONE DETECTED (NONE DETECT); UR OPIATES MT NONE DETECTED (NONE DETECT); UR OXYCODONE MEDTOX NONE DETECTED (NONE DETECT); UR PCP MEDTOX NONE DETECTED (NONE DETECT)
--- NOTE | 2017-03-11 07:57 | Diag Imaging Result Doc PS360 ---
CT HEAD W/O CONTRAST - 03/11/2017 INDICATION: AMS TECHNIQUE: A CT dose reduction protocol was used. COMPARISON: 01/04/2017 FINDINGS: There are multifocal areas of old encephalomalacia that have increased slightly since the prior exam. The increased area is at the lateral right upper lobe. Other areas of encephalomalacia of the right cerebral hemisphere are stable. There is stable moderate to severe periventricular white matter chronic microvascular disease. No intracranial mass or hemorrhage. The skull is intact. IMPRESSION: Increasing chronic ischemic changes of the brain. No acute abnormality. Electronically signed by Nitin Chacko 03/11/2017 7:54 AM
--- NOTE | 2017-03-11 08:30 | HISTORY AND PHYSICAL ---
FAMILY PHYSICIAN: Nacho Leos MD. CHIEF COMPLAINT: Respiratory failure. HISTORY OF PRESENT ILLNESS: Ms Jolley is an 81-year-old female with past medical history of a recent CVA 2-3 weeks ago, suspected transient atrial fibrillation, hypertension, hyperlipidemia, hypothyroidism, history of bladder cancer, who came to the hospital via EMS for respiratory failure. History was obtained by correction worker and the patient's sister. According to the correction worker, earlier in the morning patient was complaining of shortness of breath. When the correction workers were trying to assist her in bed, she developed seizure like activity, lost consciousness, and suddenly became very still. CPR was started and 911 was called. By the time EMS arrived, they determined that the patient had pulse. CPR was stopped and patient was brought immediately to the ER. On ER arrival, patient was intubated and was taken to the CT scan for evaluation of a CVA. PAST MEDICAL HISTORY: Bladder cancer, hypertension, hyperlipidemia, hypothyroidism, CVA in February 2017, colon cancer. PAST SURGICAL HISTORY: Thyroidectomy, questionable appendectomy per previous records, tonsillectomy, left hip replacement, colon resection, bladder cancer with subsequent surgery. SOCIAL HISTORY: Patient lives at the [facility]. Per previous records, no tobacco, alcohol or illicit drug use. FAMILY HISTORY: Mother had colon cancer. Father had hypertension. Family history of diabetes mellitus and also history in the family of coronary artery disease. ALLERGIES: No known drug allergies. HOME MEDICATIONS: 1. Ubidecarenone 100 mg capsule, 2 capsules p.o. daily. 2. Vitamin D 3. 3. Aspirin 162 mg p.o. daily. 4. Levothyroxine 88 mcg oral daily. 5. Magnesium oxide 400 mg p.o. daily. 6. Metoprolol succinate 50 mg p.o. at bedtime. 7. Atorvastatin 40 mg tablet at bedtime. 8. Sertraline 25 mg tablet oral daily. PHYSICAL EXAM: VITAL SIGNS: Temperature 99.6 degrees, pulse 82, respirations 19, blood pressure 104/67, oxygen saturation 95% on room air. The patient is intubated. GENERAL: Patient is sedated and cannot provide any history. HEENT: Head is normocephalic, atraumatic. Eyes: Pinpoint pupils. Barely reactive to light. NECK: Supple. No JVD. PULMONARY: Well ventilated bilaterally. No wheezing, rales or crackles. Again, patient is intubated. CARDIOVASCULAR: S1, S2. No rubs, murmurs, or gallops. ABDOMEN: Soft, nondistended, nontender. EXTREMITIES: Trace pitting edema bilaterally. NEUROLOGIC: Unable to assess. LABORATORY DATA: White blood cell count 11, hemoglobin 13.8, hematocrit 94, platelets 264. Sodium 141, potassium 4.6, BUN 16, creatinine 1.5, AST 31. IMAGING: Chest x-ray and head CT; official reads are still pending. It seems that the patient does not have bleeding; however, please follow up on the official read of the head CT. ASSESSMENT AND PLAN: 1. Respiratory failure. It is unclear why patient developed respiratory failure. It is possible that patient had a seizure versus a cerebrovascular accident. Official read of the head CT is still pending. Patient is intubated and is being admitted to the intensive care unit. The patient is currently on propofol. 2. Possible seizures. Given the history of seizures and also on physical exam the patient had some myoclonic jerks. We gave the patient a loading dose of Keppra 1000 mg. We will consider neurology consult. 3. Encephalopathy. According to the family the patient had altered mental status one day prior to admission. The patient is currently intubated. 4. Hypertension. We will hold patient's home medications. 5. History of cerebrovascular accident. The patient was recently discharged from the hospital on March 10. Head CT scan is still pending. CODE STATUS: It was discussed with the patient's sister. If patient would go into cardiac arrest, they would not like us to do compression, so at the moment patient will be DNR. Patient is intubated. cc: MD Nacho Brandt MD
[2017-03-11] MEDS ORDERED: VIMPAT IV ONE ×2 (12:40→13:15)
[2017-03-11] MEDS ORDERED: NS IV ONE (13:15)
[2017-03-11] MEDS: D5 1/2 NS 1,000 ML IV SCH (13:16)
--- NOTE | 2017-03-11 13:50 | CONSULTATION ---
DATE OF CONSULTATION: 03/11/2017 REASON FOR CONSULT: Seizure-like events. HISTORY OF PRESENT ILLNESS: History is taken from family as well as chart review. An 81-year-old female with history of recent stroke, previously suspected paroxysmal atrial fibrillation (though 03/03/17 admission EKG then confirmed Afib), hypertension, hyperlipidemia, and history of bladder cancer who was admitted early this morning for respiratory failure and possible seizures. Apparently earlier in the morning the patient had been complaining of shortness of breath. Suddenly she developed seizure-like activity while in bed. She lost consciousness. CPR was apparently started. EMS arrived and noticed the patient had a pulse so CPR was stopped. There may have been tongue or cheek biting as blood was noted. In the ER the patient was intubated and placed on propofol. She was loaded with 1g keppra. Her propofol was stopped around 8:30 this morning and she had been getting p.r.n. Ativan, per nurse, for a total of 6mg ativan in the last few hours. She has been having persistent jerking of the head towards the left with associated left shoulder/arm jerking. It looks like she presented here in December with acute onset left hemiparesis and facial droop. She had a HCT showing chronic ischemic changes. I believe she was diagnosed with acute stroke clinically. The weakness has been most prominent in her left arm and she had shown some improvement with PT. The physical science aide suspected the pt may have transient afib and wanted to obtain an event monitor as an outpatient for further evaluation. She was readmitted just a few weeks ago for generalized weakness and falls and her EKG on admission did indeed show afib. She has not been eating well for some time now. PAST MEDICAL HISTORY: Recent stroke in 12/2016. This affected her left side and she has had persistent left arm weakness since that time; Bladder cancer; Hypertension; Hyperlipidemia; Hypothyroidism; paroxysmal afib; Question of colon cancer. Thyroidectomy; Possible appendectomy; Tonsillectomy;Left hip replacement; Colon resection; Bladder cancer surgery. SOCIAL HISTORY: Lives at [facility]. No tobacco or alcohol or illicits. FAMILY HISTORY: Mother with cancer and father with hypertension. Also diabetes and coronary disease in the family. No seizures. ALLERGIES: No known drug allergies. HOME MEDICATIONS: 1. Ubidecarenone. 2. Vitamin D3. 3. Aspirin 162 daily. 4. Levothyroxine. 5. Magnesium oxide. 6. Metoprolol. 7. Atorvastatin. 8. Sertraline. REVIEW OF SYSTEMS: Unable to be obtained due to the patient's mental status. There was no report of any fevers. The family did report that she has not been eating much for the last few months. PHYSICAL EXAMINATION: Vital Signs: She has been afebrile. Blood pressure currently 146/72, pulse 68, respirations 20 on the ventilator. General: This patient is sedated on the vent. HEENT: notable for intubated with frequent head jerking to the left. Neck: Supple. Trachea midline. Cardiovascular: Pulses were palpated. No major edema. Lungs: She is intubated. No wheezes. No rales. Abdomen: Soft. Nondistended, obese. Extremities: Again no major edema. Mental Status-she is sedated on the vent. No reaction to loud voice. She does have some spontaneous movement of her right arm and right leg at times, and also movement to painful stimulation and during examination otherwise. Cranial nerves: Pupils 3-->2 mm OU and reactive. Gaze is conjugate and forward. There is a horizontal eye movements with passive head turning. Positive corneals. Positive gag and cough. Motor exam: Persistent, rhythmic, focal jerking of the head/neck toward the left with synchronous jerking of the left arm/shoulder. She spontaneously moves the right arm and leg. No movement of the left arm is noted, perhaps subtle movement of the left leg with gravity eliminated. She does withdraw to constant painful stimulus on the right side. Possibly in the left leg. No withdrawal to stimulus of the left arm. Reflexes are diminished throughout. Bilateral Babinski signs are present. No clonus. DIAGNOSTICS: White count elevated at 11. Sodium 141, BUN 16, creatinine 1.5. INR 1.46. The PT is 15.7. AST 31, alkaline phosphatase 106. Calcium 9. Urinalysis 100 protein , trace ketones and blood. Small bilirubin. 10-20 red cells greater than 10 epithelial cells. Toxicology was negative. ASSESSMENT AND PLAN: An 81-year-old female with history of clinically diagnosed recent right hemisphere stroke with left hemiparesis residual now presenting with new onset seizure activity and respiratory failure. She is intubated and sedated. Status epilepticus. Possibly related to recent stroke. A focal motor SE is possible though she had been sedated prior to my evaluation so it is difficult to tell at this time. Will load with additional 1g keppra now to accompany the 1g she previously received. Start keppra 2g bid maintenance. Will obtain an EEG as soon as possible. Place patient back on propofol which she was just on until we can obtain the EEG. Correct any underlying metabolic and electrolyte disturbances. Further recommendations to follow. Recent clinical stroke. Last admission did indeed confirm afib on her EKG. She would need to be on anticoagulation for secondary stroke prevention once she is more stable. I would also obtain brain MRI for further evaluation once this can be obtained. Thank you for this consultation. Will follow. cc: MD Nacho Rojas MD MTDD
--- NOTE | 2017-03-11 17:01 | EEG REPORT ---
DATE: 03/11/2017 REFERRING PHYSICIAN: Dr. Katy Honeycutt. EEG: #[id number]. HEAD OF RESEARCH & INSIGHTS: Katarina Florez. BACKGROUND INFORMATION: A digitally recorded EEG without video was obtained with 1 additional channel for EKG. HISTORY OF PRESENT ILLNESS: The patient is an 81-year-old female with history of recent stroke with subsequent left hemiparesis presenting with seizures. She is sedated and on the ventilator. She has persistent jerking movements of the head and left shoulder/arm. An EEG is ordered to detect evidence of seizures. MEDICATIONS: Propofol, lorazepam, Keppra. EEG FINDINGS: A posterior dominant alpha rhythm is notably absent. Initially a burst suppression pattern is seen with interburst intervals of 2-3 seconds and brief bursts consisting primarily of sharply contoured theta greater than delta frequencies with superimposed beta. Propofol was discontinued after 2 minutes of recording. The EEG gradually becomes more continuous as the study continues. There are questionable intermixed sharps primarily in the right posterior temporoparietooccipital region, but the study becomes technically limited by diffuse myogenic artifact making this uncertain. No consistent documentation regarding clinical features is recorded. No definite seizures are seen. No definite focal slowing. Photic stimulation did not alter the record. Hyperventilation was not performed. No drowsiness patterns. The EKG shows irregular R to R intervals. IMPRESSION AND CLINICAL CORRELATION: Abnormal, technically limited, routine EEG due to: 1. Burst suppression pattern consistent with pharmacologic sedation. Cannot rule out underlying cerebral dysfunction. 2. Questionable sharps within the right posterior temporoparietal occipital region. These are questionable, but may suggest underlying cortical irritability and increased propensity for seizure. I would recommend continuous EEG monitoring with video for further evaluation. cc: MD Nacho Rojas MD [facility]
[2017-03-11] MEDS ORDERED: NS 500 ML IV ONE (17:38)
[2017-03-11] MEDS ORDERED: KEPPRA 2,000 MG in NS 100 ML IV SCH (21:00)
[2017-03-11] MEDS ORDERED: VIMPAT IV SCH ×2 (21:00)
[2017-03-11] MEDS ORDERED: NS IV SCH (21:00)
[2017-03-12] MEDS: ATIVAN IV PRN (00:40)
[2017-03-12 01:38] VITALS: BP 160/77
[2017-03-12] MEDS: D5 1/2 NS 1,000 ML IV SCH (02:24)
--- NOTE | 2017-03-15 10:20 | DISCHARGE SUMMARY ---
ADMISSION DATE: 03/11/2017 DISCHARGE DATE: 03/12/2017 FINAL DIAGNOSES: 1. Status epilepticus, intractable. 2. 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 3. 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 4. Essential hypertension. 5. Hypothyroidism. PRESENT ILLNESS: Mrs. Jolley is an 81-year-old white female with a history of a symptomatic stroke approximately 3 months ago with left hemiparesis. She was hospitalized at that time, discharged to rehab and eventually discharged home. Approximately 10 days before admission, she was readmitted here with failure to thrive at home, felt to be due to depression and dehydration. She was rehydrated and discharged to a higher level of assisted living. Early on the morning of admission, her sitter noted some tonic-clonic movements and called 911. The EMT report documented some tonic-clonic activity and she was transported to the emergency room at [facility]. On arrival, she was lethargic and apparently postictal. She had a CT scan of the brain performed,which did not show any hemorrhage or new lesions, but the previously-noted ischemic area in the right hemisphere was somewhat more prominent, as would be expected with the passage of time. In the emergency room, her airway was felt to be at risk and she was intubated due to her somnolence and, perhaps, diminished respiratory effort. Neurologically was she was quite lethargic. While in the emergency room, she experience further episodes of tonic-clonic movement and was treated with intravenous Ativan and Keppra. She was admitted to the medical intensive care unit and placed on the ventilator. PHYSICAL EXAMINATION: general: Revealed an obese elderly female, who was hypertensive and poorly responsive. Lungs: Clear. Cardiac: Moderate tachycardia. No murmurs. Abdomen: Soft and nontender. neurologic: She intermittently exhibited tonic-clonic movements of the left arm, left shoulder and her neck. DATABASE: White blood count 10,800, hemoglobin and hematocrit were normal. Chemistry profile is remarkable for CO2 of 18, BUN 16, creatinine 1.5, lactate was 3.3. HOSPITAL COURSE: In the intensive care unit, attempts were made to wean her sedation, stop her propofol drip, but she again began having seizure-like activity. Neurology consult was obtained. Dr. Honeycutt felt she likely had status epilepticus, which was refractory, and recommended transfer to a facility where continuous EEG monitoring was available. An EEG was performed that showed burst suppression pattern, consistent with pharmacologic sedation, and also questionable sharp waves in the right posterior temporal occipital region, possibly suggesting underlying cortical irritability. Because of the continuing need for IV Ativan and propofol for seizure control, she remained unresponsive and was difficult to assess her sensorium. She was given a loading dose of Vimpat as well. I contacted [facility] transport team, and was informed that there neuro ICU was full capacity and had a lengthy waiting list. I then called [facility] Neu[facility] home extension agent, Dr. Eden, and was told that they would likely have a bed within the next 12 hours, and arrangements were made for transfer to their facility. Shortly after midnight the following day, a bed became available and she was transferred by ambulance to [facility]. cc: Nacho Leos MD
--- NOTE | 2017-04-27 10:49 | ED EKG INTERP ---
This chart was entered by Jaki León Scribe, acting as scribe for Lamont Calhoun MD. EKG Interpretation - EKG Time of EKG reading by physician:: 04:45 EKG Read and Signed by:: Lamont Calhoun EKG Interpretation (*Must complete 3 of following elements*): Abnormal Rate: 82 Rhythm: sinus rhythm w premature atrial complexes QRS: RBB Attestation - Physician/ SWATI Attestation Patient care was provided by Advanced Practice Provider:: Yes Advanced Practice Provider documentation review:: The Mid-level provider documentation, treatment plan and medical decision making was reviewed by the physician who agrees with all treatment and medical decision making by the MLP. The physician spent face to face time with patient:: No Advanced Practice Provider documentation review:: Supervising physician onsite and consulted in the evaluation and care of this patient. The physician did not have a face to face encounter with the patient. This chart was documented by the indicated scribe, (Jaki León Scribe) and accurately reflects the services I performed and decisions made by me, Lamont Calhoun MD, as attested by the provider's signature.
== END 2017-03-12 02:45 | disposition short-term general hospital (02) ==
LOC: ED 04:03 → SUATTDRO 06:49 → ICU 06:49 → SUPCPDRO 06:49
PROVIDERS: ADMIT Internal Medicine; ATTEND Internal Medicine